=== PATIENT | female | born 1945 | race Caucasian/White ===

== ENCOUNTER 2021-06-26 10:25 | Inpatient (IN) | payer MEDICARE ==
[2021-06-26] MEDS ORDERED: KETOROLAC 15 MG/ML 1 ML VIAL IVP STA (12:45)
[2021-06-26] MEDS ORDERED: SODIUM CHLORIDE 0.9% 500 ML 500 ML IV ONE (12:45)
[2021-06-26] MEDS ORDERED: ONDANSETRON 4 MG/2 ML VIAL IVP STA (12:46)
[2021-06-26 13:23] LABS: Anisocytosis Slight; Basophils % (A) 0 %; Eosinophils # (A) 0.1 k/uL (0-0.7); Eosinophils % (A) 1 %; HGB 14.9 gm/dL (11.4-16.0); Lymphocytes # (A) 1.1 k/uL (1.0-4.8); Lymphocytes % (A) 10 %; MCH 25.7 pg (25.0-35.0); MCV 77.8 fL (80.0-100.0); Mean Platelet Volume 8.6; Microcytosis Slight; Monocytes # (A) 0.8 k/uL (0-1.0); Monocytes % (A) 7 %; Neutrophils % (A) 81 %; Platelet Count 283 k/uL (150-450); RBC 5.79 m/uL (3.80-5.40); RDW 18.6 % (11.5-15.5); WBC 11.2 k/uL (3.8-10.6)
--- NOTE | 2021-06-26 13:24 | US ---
EXAMINATION TYPE: US gallbladder DATE OF EXAM: 06/26/2021 COMPARISON: NONE CLINICAL HISTORY: ruq abd pain. EXAM MEASUREMENTS: Liver Length: 17.8 cm Gallbladder Wall: 0.6 cm CBD: 0.6 cm Right Kidney: 9.8 x 4.5 x 5.0 cm Pancreas: Obscured by bowel gas, duct visualized measuring 0.2 cm Liver: wnl Gallbladder: Multiple stones visualized, wall appears thickened Evidence for sonographic Burris's sign: yes CBD: wnl as visualized, distal portion is obscured by bowel gas Right Kidney: No hydronephrosis or masses seen IMPRESSION: 1. Cholelithiasis correlate for acute cholecystitis. Distal CBD stone in the differential diagnosis.
[2021-06-26] MEDS ORDERED: MORPHINE SULFATE 4 MG/ML SYRINGE IVP STA (13:28)
[2021-06-26 13:30] LABS: ALT 20 U/L (4-34); AST 40 U/L (14-36); African American GFR (CKD) >90 (>60 ml/min/1.73 sqM); Albumin 4.6 g/dL (3.5-5.0); Alkaline Phosphatase 111 U/L (38-126); Amylase 80 U/L (30-110); Anion Gap 10 mmol/L; Blood Urea Nitrogen 11 mg/dL (7-17); Calcium 10.3 mg/dL (8.4-10.2); Carbon Dioxide 26 mmol/L (22-30); Chloride 96 mmol/L (98-107); Glucose 114 mg/dL (74-99); Lipase 99 U/L (23-300); Non-African American GFR(CKD) 87 (>60 ml/min/1.73 sqM); Potassium 3.7 mmol/L (3.5-5.1); Sodium 132 mmol/L (137-145); Total Bilirubin 0.6 mg/dL (0.2-1.3); Total Protein 7.7 g/dL (6.3-8.2)
[2021-06-26 13:35] LABS: Appearance,Urine Cloudy (Clear); Bilirubin,Urine Negative (Negative); Blood,Urine Negative (Negative); Color,Urine Yellow; Glucose,Urine (UA) Negative (Negative); Hyaline Casts,Urine 19 /lpf (0-2); Ketones,Urine 1+ (Negative); Leukocyte Esterase,Urine Moderate (Negative); Mucus,Urine Many /hpf; Nitrite,Urine Negative (Negative); Protein,Urine 1+ (Negative); RBC,Urine 9 /hpf (0-5); Specific Gravity,Urine 1.026 (1.001-1.035); Squamous Epithelial Cell,Urine 1 /hpf (0-4); WBC,Urine 6 /hpf (0-5)
[2021-06-26 13:37] LABS: Partial Thromboplastin Time 23.8 sec (22.0-30.0); Prothrombin Time 10.4 sec (9.0-12.0)
--- NOTE | 2021-06-26 14:29 | CT ---
EXAMINATION TYPE: CT abdomen pelvis w con DATE OF EXAM: 06/26/2021 HISTORY: Rt sided pain CT DLP: 1314.7mGycm Automated Exposure Control for Dose Reduction was Utilized. CONTRAST: CT scan of the abdomen and pelvis is performed without oral but with IV Contrast, patient injected wi th 100 mL of Isovue 300. COMPARISON: Gallbladder ultrasound earlier today FINDINGS: LUNG BASES: Slightly elevated left hemidiaphragm with mild bibasilar linear scarring and/or atelectas is. LIVER/GB: Prominent right hepatic lobe. Visualized liver heterogeneously hypodense suggesting diffuse fatty infiltration. Multiple punctate and subcentimeter hypodense lesions too small to further donnie cterize. Possible underlying von Meyenburg complex a benign etiology. Gallbladder is markedly abnormal with large internal partially calcified mass possible large partiall y calcified calculus versus hyperdense gallbladder containing some internal hyperdense and calcified gallstones. Wall is edematous and thickened. Common bile duct measures upper limits of normal coronal image 33 corresponding to ultrasound. No internal biliary dilatation noted. PANCREAS: No significant abnormality is seen. SPLEEN: No significant abnormality is seen. ADRENALS: Abnormal nonspecific 2.5 x 1.9 cm left adrenal mass axial image 19. Hounsfield units averag e 63 on initial contrast images. KIDNEYS: No significant abnormality is seen. BOWEL: Wandering cecum is present into the anterior midabdomen just right of midline coronal image 28 . No suspicious small or large bowel dilatation UTERUS/ADNEXA: Anteverted uterus. LYMPH NODES: No greater than 1cm abdominal or pelvic lymph nodes are appreciated. OSSEOUS STRUCTURES: Suspected accessory bilateral L1 ribs and transitional S1 vertebra. Multilevel mi ld to moderate anterior and lateral spurring. Vacuum disc phenomenon and mild to moderate disc space narrowing L3-L4 and L5 L5-S1 levels noted. Kwkm-hg-gkhdljon joint space loss in both hips. OTHER: Fairly large sized fat-containing umbilical hernia. IMPRESSION: 1. Suspect acute cholecystitis or less likely underlying gallbladder mass. Either way surgical explor ation is warranted. 2. Nonspecific 2.5 cm left adrenal mass, malignant etiology not excluded, nonemergent adrenal protoco l CT or MRI imaging follow-up is advised.
[2021-06-26] MEDS ORDERED: IBUPROFEN 400 MG TAB PO PRN (14:41)
[2021-06-26] MEDS ORDERED: NALOXONE 0.4 MG/ML 1 ML VIAL IV PRN (14:41)
[2021-06-26] MEDS ORDERED: ACETAMINOPHEN TAB 325 MG TAB PO PRN (14:41)
[2021-06-26] MEDS ORDERED: ONDANSETRON 4 MG/2 ML VIAL IVP PRN (14:41)
--- NOTE | 2021-06-26 14:41 | ED ---
Abdominal Pain HPI - General Chief Complaint: Abdominal Pain Stated Complaint: abd pain Time Seen by Provider: 06/26/21 12:16 Source: patient Mode of arrival: ambulatory Limitations: no limitations - History of Present Illness Initial Comments: The patient is a 76-year-old female who presents to the emergency department with reported abdominal pain. Patient states she's had epigastric abdominal pain since Thursday. Does have a long-standing history of "gallbladder issues" however the pain has never lasted this long. She has associated nausea and vo miting. Reports that the pain has been progressively getting worse. Pain radiates around to the right flank. Admits to increased frequency of urination. No hematuria. No changes in her bowel habits. Denies fevers or chills. No other alleviating, precipitating or modifying factors - Related Data Home Medications Medication Instructions Recorded Confirmed Aspirin EC [Ecotrin Low Dose] 81 mg PO DAILY 06/26/21 06/26/21 Atenolol [Tenormin] 50 mg PO HS 06/26/21 06/26/21 Multivitamins, Thera [Multivitamin 1 tab PO DAILY 06/26/21 06/26/21 (formulary)] amLODIPine [Norvasc] 5 mg PO DAILY 06/26/21 06/26/21 Previous Rx's Medication Instructions Recorded Acetaminophen Tab [Tylenol Tab] 500 mg PO Q6H PRN #30 tablet 06/28/21 Ibuprofen [Motrin] 600 mg PO Q8HR PRN #30 tab 06/28/21 Simethicone [Gas-X] 125 mg PO AC-TID PRN #20 capsule 06/28/21 Allergies Allergy/AdvReac Type Severity Reaction Status Date / Time No Known Allergies Allergy Verified 06/26/21 16:43 Review of Systems ROS Statement: Those systems with pertinent positive or pertinent negative responses have been documented in the HPI. ROS Other: All systems not noted in ROS Statement are negative. Past Medical History Past Medical History: Hypertension History of Any Multi-Drug Resistant Organisms: None Reported Past Surgical History: Appendectomy Additional Past Surgical History / Comment(s): right radical mastectomy, fx c6- c7, right ankle fx Past Psychological History: No Psychological Hx Reported Smoking Status: Never smoker Past Alcohol Use History: None Reported Past Drug Use History: None Reported General Exam Limitations: no limitations General appearance: alert, in no apparent distress Head exam: Present: atraumatic, normocephalic, normal inspection Eye exam: Present: normal appearance, PERRL, EOMI. Absent: scleral icterus, conjunctival injection, periorbital swelling ENT exam: Present: normal exam, mucous membranes moist Neck exam: Present: normal inspection. Absent: tenderness, meningismus, lymphadenopathy Respiratory exam: Present: normal lung sounds bilaterally. Absent: respiratory distress, wheezes, rales, rhonchi, stridor Cardiovascular Exam: Present: regular rate, normal rhythm, normal heart sounds. Absent: systolic murmur, diastolic murmur, rubs, gallop, clicks GI/Abdominal exam: Present: soft, tenderness (ruq), normal bowel sounds. Absent: distended, guarding, rebound, rigid Extremities exam: Present: normal inspection, full ROM, normal capillary refill. Absent: tenderness, pedal edema, joint swelling, calf tenderness Back exam: Present: normal inspection Neurological exam: Present: alert, oriented X3, CN II-XII intact Psychiatric exam: Present: normal affect, normal mood Skin exam: Present: warm, dry, intact, normal color. Absent: rash Course Vital Signs 06/26/21 06/26/21 10:36 15:26 Temperature 97.7 F Pulse Rate 67 84 Respiratory 18 18 Rate Blood Pressure 135/90 142/75 O2 Sat by Pulse 96 99 Oximetry Medical Decision Making - Medical Decision Making Upon arrival patient placed into room 33. A thorough history and physical exam is performed. IV is established. Patient was given 15 g of Toradol as she is requesting a non narcotic medication. Laboratory studies are conducted. Sodium is 132. Urinalysis demonstrates hyalin casts and a few red blood cells. No bacteria. The patient does have a color ultrasound performed which does demonstrate concern for acute cholecystitis. CT additionally shows these concerns. There is acute cholelithiasis. Patient is started on Zosyn. She does request Dr. Nunez as her surgeon. Dr. Nunez is functional director. I spoke with her who does agree to admit the patient. Patient is currently awaiting a bed on the floor - Lab Data Result diagrams: 06/28/21 06:25 06/28/21 18:41 Lab Results 06/26/21 06/26/21 06/26/21 Range/Units 12:35 12:35 12:35 WBC 11.2 H (3.8-10.6) k/uL RBC 5.79 H (3.80-5.40) m/uL Hgb 14.9 (11.4-16.0) gm/dL Hct 45.0 (34.0-46.0) % MCV 77.8 L (80.0-100.0) fL MCH 25.7 (25.0-35.0) pg MCHC 33.0 (31.0-37.0) g/dL RDW 18.6 H (11.5-15.5) % Plt Count 283 (150-450) k/uL MPV 8.6 Immature Gran % (Auto) % Absolute Nucleated RBC (0.00-0.00) X 10*3/uL Neutrophils % 81 % Lymphocytes % 10 % Monocytes % 7 % Eosinophils % 1 % Basophils % 0 % Immature Gran # (0.00-0.04) X 10*3/uL Neutrophils # 9.0 H (1.3-7.7) k/uL Lymphocytes # 1.1 (1.0-4.8) k/uL Monocytes # 0.8 (0-1.0) k/uL Eosinophils # 0.1 (0-0.7) k/uL Basophils # 0.0 (0-0.2) k/uL NRBC/100 WBC Diff (0.0-0.0) /100 WBCS Anisocytosis Slight Microcytosis Slight PT (9.0-12.0) sec INR (<1.2) APTT (22.0-30.0) sec Sodium 132 L (137-145) mmol/L Potassium 3.7 (3.5-5.1) mmol/L Chloride 96 L (98-107) mmol/L Carbon Dioxide 26 (22-30) mmol/L Anion Gap 10 mmol/L BUN 11 (7-17) mg/dL Creatinine 0.67 (0.52-1.04) mg/dL Est GFR (CKD-EPI)AfAm >90 (>60 ml/min/1.73 sqM) Est GFR (CKD-EPI)NonAf 87 (>60 ml/min/1.73 sqM) BUN/Creatinine Ratio (12.00-20.00) Ratio Glucose 114 H (74-99) mg/dL Plasma Lactic Acid Steve (0.7-2.0) mmol/L Calcium 10.3 H (8.4-10.2) mg/dL Total Bilirubin 0.6 (0.2-1.3) mg/dL AST 40 H (14-36) U/L ALT 20 (4-34) U/L Alkaline Phosphatase 111 (38-126) U/L Total Protein 7.7 (6.3-8.2) g/dL Albumin 4.6 (3.5-5.0) g/dL Globulin (1.6-3.3) g/dL Albumin/Globulin Ratio (1.60-3.17) g/dL Amylase 80 (30-110) U/L Lipase 99 (23-300) U/L Urine Color Yellow Urine Appearance Cloudy H (Clear) Urine pH 6.0 (5.0-8.0) Ur Specific [place] 1.026 (1.001-1.035) Urine Protein 1+ H (Negative) Urine Glucose (UA) Negative (Negative) Urine Ketones 1+ H (Negative) Urine Blood Negative (Negative) Urine Nitrite Negative (Negative) Urine Bilirubin Negative (Negative) Urine Urobilinogen 2.0 (<2.0) mg/dL Ur Leukocyte Esterase Moderate H (Negative) Urine RBC 9 H (0-5) /hpf Urine WBC 6 H (0-5) /hpf Ur Squamous Epith Cells 1 (0-4) /hpf Hyaline Casts 19 H (0-2) /lpf Urine Mucus Many H (None) /hpf 06/26/21 06/26/21 06/27/21 Range/Units 12:35 12:35 06:02 WBC 7.2 (3.8-10.6) k/uL RBC 4.81 (3.80-5.40) m/uL Hgb 12.5 (11.4-16.0) gm/dL Hct 38.3 (34.0-46.0) % MCV 79.5 L (80.0-100.0) fL MCH 26.1 (25.0-35.0) pg MCHC 32.8 (31.0-37.0) g/dL RDW 19.0 H (11.5-15.5) % Plt Count 228 (150-450) k/uL MPV 8.5 Immature Gran % (Auto) % Absolute Nucleated RBC (0.00-0.00) X 10*3/uL Neutrophils % 78 % Lymphocytes % 10 % Monocytes % 9 % Eosinophils % 1 % Basophils % 0 % Immature Gran # (0.00-0.04) X 10*3/uL Neutrophils # 5.6 (1.3-7.7) k/uL Lymphocytes # 0.7 L (1.0-4.8) k/uL Monocytes # 0.7 (0-1.0) k/uL Eosinophils # 0.1 (0-0.7) k/uL Basophils # 0.0 (0-0.2) k/uL NRBC/100 WBC Diff (0.0-0.0) /100 WBCS Anisocytosis Slight Microcytosis Slight PT 10.4 (9.0-12.0) sec INR 1.0 (<1.2) APTT 23.8 (22.0-30.0) sec Sodium (137-145) mmol/L Potassium (3.5-5.1) mmol/L Chloride (98-107) mmol/L Carbon Dioxide (22-30) mmol/L Anion Gap mmol/L BUN (7-17) mg/dL Creatinine (0.52-1.04) mg/dL Est GFR (CKD-EPI)AfAm (>60 ml/min/1.73 sqM) Est GFR (CKD-EPI)NonAf (>60 ml/min/1.73 sqM) BUN/Creatinine Ratio (12.00-20.00) Ratio Glucose (74-99) mg/dL Plasma Lactic Acid Steve 1.2 (0.7-2.0) mmol/L Calcium (8.4-10.2) mg/dL Total Bilirubin (0.2-1.3) mg/dL AST (14-36) U/L ALT (4-34) U/L Alkaline Phosphatase (38-126) U/L Total Protein (6.3-8.2) g/dL Albumin (3.5-5.0) g/dL Globulin (1.6-3.3) g/dL Albumin/Globulin Ratio (1.60-3.17) g/dL Amylase (30-110) U/L Lipase (23-300) U/L Urine Color Urine Appearance (Clear) Urine pH (5.0-8.0) Ur Specific [place] (1.001-1.035) Urine Protein (Negative) Urine Glucose (UA) (Negative) Urine Ketones (Negative) Urine Blood (Negative) Urine Nitrite (Negative) Urine Bilirubin (Negative) Urine Urobilinogen (<2.0) mg/dL Ur Leukocyte Esterase (Negative) Urine RBC (0-5) /hpf Urine WBC (0-5) /hpf Ur Squamous Epith Cells (0-4) /hpf Hyaline Casts (0-2) /lpf Urine Mucus (None) /hpf 06/27/21 06/28/21 06/28/21 Range/Units 06:02 06:25 06:25 WBC 7.22 (3.8-10.6) k/uL RBC 4.25 (3.80-5.40) m/uL Hgb 10.6 L (11.4-16.0) gm/dL Hct 34.1 L (34.0-46.0) % MCV 80.2 (80.0-100.0) fL MCH 24.9 L (25.0-35.0) pg MCHC 31.1 L (31.0-37.0) g/dL RDW 19.7 H (11.5-15.5) % Plt Count 155 (150-450) k/uL MPV 11.6 Immature Gran % (Auto) 0.3 % Absolute Nucleated RBC 0 (0.00-0.00) X 10*3/uL Neutrophils % 77.4 % Lymphocytes % 10.1 % Monocytes % 11.1 % Eosinophils % 0.8 % Basophils % 0.3 % Immature Gran # 0.02 (0.00-0.04) X 10*3/uL Neutrophils # 5.59 (1.3-7.7) k/uL Lymphocytes # 0.73 L (1.0-4.8) k/uL Monocytes # 0.80 (0-1.0) k/uL Eosinophils # 0.06 (0-0.7) k/uL Basophils # 0.02 (0-0.2) k/uL NRBC/100 WBC Diff 0 (0.0-0.0) /100 WBCS Anisocytosis Microcytosis PT (9.0-12.0) sec INR (<1.2) APTT (22.0-30.0) sec Sodium 134 L 136 (137-145) mmol/L Potassium 4.0 3.4 L (3.5-5.1) mmol/L Chloride 103 103 (98-107) mmol/L Carbon Dioxide 27 27.4 (22-30) mmol/L Anion Gap 4 5.60 mmol/L BUN 11 15.0 (7-17) mg/dL Creatinine 0.59 0.8 (0.52-1.04) mg/dL Est GFR (CKD-EPI)AfAm >90 84.2 (>60 ml/min/1.73 sqM) Est GFR (CKD-EPI)NonAf >90 72.6 (>60 ml/min/1.73 sqM) BUN/Creatinine Ratio 18.75 (12.00-20.00) Ratio Glucose 102 H 129 H (74-99) mg/dL Plasma Lactic Acid Steve (0.7-2.0) mmol/L Calcium 8.6 7.6 L (8.4-10.2) mg/dL Total Bilirubin 0.7 (0.2-1.3) mg/dL AST 53 H (14-36) U/L ALT 45 H (4-34) U/L Alkaline Phosphatase 91 (38-126) U/L Total Protein 4.9 L (6.3-8.2) g/dL Albumin 3.20 L (3.5-5.0) g/dL Globulin 1.7 (1.6-3.3) g/dL Albumin/Globulin Ratio 1.88 (1.60-3.17) g/dL Amylase (30-110) U/L Lipase (23-300) U/L Urine Color Urine Appearance (Clear) Urine pH (5.0-8.0) Ur Specific [place] (1.001-1.035) Urine Protein (Negative) Urine Glucose (UA) (Negative) Urine Ketones (Negative) Urine Blood (Negative) Urine Nitrite (Negative) Urine Bilirubin (Negative) Urine Urobilinogen (<2.0) mg/dL Ur Leukocyte Esterase (Negative) Urine RBC (0-5) /hpf Urine WBC (0-5) /hpf Ur Squamous Epith Cells (0-4) /hpf Hyaline Casts (0-2) /lpf Urine Mucus (None) /hpf - EKG Data EKG Comments: EKG demonstrates a sinus bradycardia with a ventricular rate of 58. FL interval 146. QRS 88. QTC of 428. No acute ST segment elevations or depressions Disposition Clinical Impression: Cholecystitis, acute with cholelithiasis Disposition: ADMITTED IP TO THIS HOSP Condition: Stable Is patient prescribed a controlled substance at d/c from ED?: No Decision to Admit Reason: Admit from EC Decision Date: 06/26/21 Decision Time: 14:41
[2021-06-26] MEDS: SODIUM CHLORIDE 0.9% 1,000 ML IV SCH (15:24)
[2021-06-26] MEDS: PIPERACILLIN-TAZOBACTAM 3.375 GM in SODIUM CHLORIDE 0.9% 100 ML IVPB SCH ×2 (16:13→23:48)
[2021-06-26] MEDS: MORPHINE SULFATE 4 MG/ML SYRINGE IV PRN (22:33)
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
[2021-06-26] MEDS: atenoloL 50 MG TAB PO SCH (23:48)
[2021-06-27] MEDS: SODIUM CHLORIDE 0.9% 1,000 ML IV SCH ×2 (04:07→08:05)
[2021-06-27 06:41] LABS: Anisocytosis Slight; Basophils % (A) 0 %; Eosinophils # (A) 0.1 k/uL (0-0.7); Eosinophils % (A) 1 %; HCT 38.3 % (34.0-46.0); HGB 12.5 gm/dL (11.4-16.0); Lymphocytes # (A) 0.7 k/uL (1.0-4.8); Lymphocytes % (A) 10 %; MCH 26.1 pg (25.0-35.0); MCHC 32.8 g/dL (31.0-37.0); MCV 79.5 fL (80.0-100.0); Mean Platelet Volume 8.5; Microcytosis Slight; Monocytes # (A) 0.7 k/uL (0-1.0); Monocytes % (A) 9 %; Neutrophils # (A) 5.6 k/uL (1.3-7.7); Neutrophils % (A) 78 %; Platelet Count 228 k/uL (150-450); RBC 4.81 m/uL (3.80-5.40); WBC 7.2 k/uL (3.8-10.6)
[2021-06-27 06:53] LABS: African American GFR (CKD) >90 (>60 ml/min/1.73 sqM); Anion Gap 4 mmol/L; Blood Urea Nitrogen 11 mg/dL (7-17); Calcium 8.6 mg/dL (8.4-10.2); Carbon Dioxide 27 mmol/L (22-30); Chloride 103 mmol/L (98-107); Glucose 102 mg/dL (74-99); Non-African American GFR(CKD) >90 (>60 ml/min/1.73 sqM); Sodium 134 mmol/L (137-145)
[2021-06-27] MEDS: HEPARIN SODIUM,PORCINE/PF 5,000 UNIT/0.5 ML SYRINGE SQ SCH ×2 (08:04→21:33)
[2021-06-27] MEDS: amLODIPine 5 MG TAB PO SCH (08:04)
[2021-06-27] MEDS: PIPERACILLIN-TAZOBACTAM 3.375 GM in SODIUM CHLORIDE 0.9% 100 ML IVPB SCH ×2 (08:05→16:45)
[2021-06-27] MEDS: MORPHINE SULFATE 4 MG/ML SYRINGE IV PRN (12:04)
[2021-06-27] MEDS ORDERED: ACETAMINOPHEN TAB 325 MG TAB PO PRN (20:19)
[2021-06-27] MEDS: atenoloL 50 MG TAB PO SCH (21:33)
--- NOTE | 2021-06-27 21:44 | P.PN ---
Subjective Progress Note Date: 06/27/21 CHIEF COMPLAINT: Acute cholecystitis HISTORY OF PRESENT ILLNESS: The patient is a 76 year old female admitted with acute cholecystitis. She reports abdominal pain with eating banana. REVIEW OF ORGAN SYSTEMS: No fevers or chills. No chest pain. No shortness of breath. PHYSICAL EXAM: VITALS: Reviewed CONSTITUTIONAL: Well developed and in no acute distress. EYES: Conjuctivae without sclera icterus. Extraocular movements grossly intact. HEAD, EARS, NOSE, THROAT: Moist buccal mucosa. Head is atraumatic, normocephalic. Hears conversational speech. No nasal drainage. RESPIRATORY: Non-labored respirations and equal bilateral excursions. No gross wheezes. CARDIOVASCULAR: Regular rate and rhythm. Extremities without moderate edema. Palpable 2+ radial pulses. ABDOMEN: Tender right upper quadrant. MUSCULOSKELETAL: No clubbing cyanosis or edema. SKIN: Warm and well perfused with good skin turgor. NEUROLOGIC: Cranial nerves II through XII grossly intact. No focal or lateralizing signs. PSYCH: Appropriate affect. Alert and oriented to person, place and time. Displays appropriate insight. CLINCAL LABS: Reviewed. WBC elevated over 11,000 now normal at 7.2 ASSESSMENT: 1. Acute cholecystitis with gallstones PLAN: 1. Continue IV antibiotics for acute cholecystitis 2. Robotic cholecystectomy described. Objective - Vital Signs Vital signs: Vital Signs Temp 98.3 F 06/27/21 14:53 Pulse 60 06/27/21 14:53 Resp 18 06/27/21 14:53 BP 134/69 06/27/21 14:53 Pulse Ox 98 06/27/21 14:53 Intake & Output 06/27/21 06/27/21 06/28/21 06:59 18:59 06:59 Intake Total 717 Balance 717 Intake: Oral 717 Other: Voiding Method Toilet # Voids 1 2 2 - Labs CBC & Chem 7: 06/27/21 06:02 06/27/21 06:02 Labs: Abnormal Lab Results - Last 24 Hours (Table) 06/27/21 06/27/21 Range/Units 06:02 06:02 MCV 79.5 L (80.0-100.0) fL RDW 19.0 H (11.5-15.5) % Lymphocytes # 0.7 L (1.0-4.8) k/uL Sodium 134 L (137-145) mmol/L Glucose 102 H (74-99) mg/dL Assessment and Plan (1) Hypertensive heart disease Current Visit: Yes Status: Acute Code(s): I11.9 - HYPERTENSIVE HEART DISEASE WITHOUT HEART FAILURE SNOMED Code(s): 85830672 (2) Bradycardia Current Visit: Yes Status: Acute Code(s): R00.1 - BRADYCARDIA, UNSPECIFIED SNOMED Code(s): 52588616 (3) Cholecystitis, acute with cholelithiasis Current Visit: Yes Status: Acute Code(s): K80.00 - CALCULUS OF GALLBLADDER W ACUTE CHOLECYST W/O OBSTRUCTION SNOMED Code(s): 80789550 (4) Hypercalcemia Current Visit: Yes Status: Acute Code(s): E83.52 - HYPERCALCEMIA SNOMED Code(s): 51425134 (5) Leukocytosis Current Visit: Yes Status: Acute Code(s): D72.829 - ELEVATED WHITE BLOOD CELL COUNT, UNSPECIFIED SNOMED Code(s): 010517635
[2021-06-28] MEDS: PIPERACILLIN-TAZOBACTAM 3.375 GM in SODIUM CHLORIDE 0.9% 100 ML IVPB SCH ×3 (00:08→18:57)
[2021-06-28] MEDS ORDERED: INDOCYANINE GREEN 25 MG VIAL IV STA (07:40)
--- NOTE | 2021-06-28 07:42 | P.HPADDEND ---
H&P Addendum H&P Addendum Date: 06/28/21 Patient with acute cholecystitis with robotic cholecystectomy described. Additional hospitalization for any presence of gallbladder necrosis or gangrene.
[2021-06-28] MEDS: HEPARIN SODIUM,PORCINE/PF 5,000 UNIT/0.5 ML SYRINGE SQ SCH ×2 (08:43→20:25)
[2021-06-28] MEDS: amLODIPine 5 MG TAB PO SCH (08:43)
[2021-06-28] MEDS: SODIUM CHLORIDE 0.9% 1,000 ML IV SCH ×2 (08:46→18:58)
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
[2021-06-28 10:36] LABS: Basophils # (A) 0.02 X 10*3/uL (0.00-0.10); Basophils % (A) 0.3 %; Eosinophils # (A) 0.06 X 10*3/uL (0.04-0.35); Eosinophils % (A) 0.8 %; HCT 34.1 % (37.2-46.3); HGB 10.6 g/dL (12.0-15.0); Lymphocytes # (A) 0.73 X 10*3/uL (0.90-5.00); Lymphocytes % (A) 10.1 %; MCH 24.9 pg (27.0-32.0); MCHC 31.1 g/dL (32.0-37.0); MCV 80.2 fL (80.0-97.0); Mean Platelet Volume 11.6 fL (9.5-12.2); Monocytes % (A) 11.1 %; Neutrophils # (A) 5.59 X 10*3/uL (1.80-7.70); Neutrophils % (A) 77.4 %; Platelet Count 155 X 10*3/uL (140-440); RBC 4.25 X 10*6/uL (4.10-5.20); RDW 19.7 % (11.5-14.5); WBC 7.22 X 10*3/uL (4.50-10.00)
[2021-06-28 11:06] LABS: African American GFR (CKD) 84.2 (60.0-200.0); Albumin 3.2 g/dL (3.80-4.90); Albumin/Globulin Ratio 1.88 (1.60-3.17); Anion Gap 5.6 mmol/L (4.00-12.00); BUN/Creat Ratio 18.75 Ratio (12.00-20.00); Calcium 7.6 mg/dL (8.7-10.3); Carbon Dioxide 27.4 mmol/L (21.6-31.8); Globulin 1.7 g/dL (1.6-3.3); Non-African American GFR(CKD) 72.6 (60.0-200.0); Potassium 3.4 mmol/L (3.5-5.5); Total Bilirubin 0.7 mg/dL (0.3-1.2); Total Protein 4.9 g/dL (6.2-8.2)
[2021-06-28] MEDS ORDERED: IV FLUID CONTINUATION 1,000 ML IV ONE ×2 (13:16→17:32)
[2021-06-28] MEDS ORDERED: LIDOCAINE 1% INJ 10MG/ML (20 ML MDV) ONE (14:18)
[2021-06-28] MEDS ORDERED: NEOSTIGMINE 1 MG/ML 10 ML VIAL ONE (14:18)
[2021-06-28] MEDS ORDERED: INDOCYANINE GREEN 25 MG VIAL IV ONE (14:18)
[2021-06-28] MEDS ORDERED: PHENYLEPHRINE-0.9% NACL SYG 1,000 MCG/10 ML SYRINGE ONE (14:18)
[2021-06-28] MEDS ORDERED: GLYCOPYRROLATE 0.2 MG/ML 2 ML VIAL ONE (14:18)
[2021-06-28] MEDS ORDERED: MIDAZOLAM 2 MG/2 ML VIAL ONE (14:18)
[2021-06-28] MEDS ORDERED: PROPOFOL 10 MG/ML 20 ML VIAL IV ONE (14:18)
[2021-06-28] MEDS ORDERED: ROCURONIUM 10 MG/ML (5 ML VIAL) IV ONE (14:18)
[2021-06-28] MEDS ORDERED: ePHEDrine SULFATE/0.9% NACL/PF 50 MG/5 ML SYRINGE IV ONE (14:18)
[2021-06-28] MEDS ORDERED: SUCCINYLCHOLINE CHLORIDE 100 MG/5 ML SYR IV ONE (14:18)
[2021-06-28] MEDS ORDERED: POTASSIUM CHLORIDE ER 20 MEQ TAB.ER PO STA (14:27)
[2021-06-28] MEDS ORDERED: LIDOCAINE 1%-EPI 1:100,000 20 ML VIAL SQ ONE (14:49)
[2021-06-28] MEDS ORDERED: ONDANSETRON 4 MG/2 ML VIAL IVP PRN (17:22)
[2021-06-28] MEDS ORDERED: HYDROmorphone 0.5 MG/0.5 ML SYRINGE IVP ONE (17:28)
--- NOTE | 2021-06-28 17:43 | P.OP ---
Date of Procedure: 06/28/21 Description of Procedure: SURGEON: BHARAT LIGHT MD PREOPERATIVE DIAGNOSES: 1. Acute cholecystitis due to cystic duct obstruction 2. Symptomatic gallstones 3. History of breast cancer status post right mastectomy 4. Hypertensive heart disease 5. Bradycardia 6. Past tobacco abuse disorder 7. Elevated liver enzymes 8. Acute blood loss anemia POSTOPERATIVE DIAGNOSES: 1. Acute hemorrhagic cholecystitis due to cystic duct obstruction 2. Symptomatic gallstones 3. History of breast cancer status post right mastectomy 4. Hypertensive heart disease 5. Bradycardia 6. Past tobacco abuse disorder 7. Right upper quadrant peritoneal adhesions 8. Elevated liver enzymes 9. Acute blood loss anemia OPERATION: 1. Robotic-assisted da Gus Xi laparoscopic extensive lysis of adhesions over 1 hour 2. Robotic-assisted da Gus Xi laparoscopic cholecystectomy, multiport with FIREFLY ESTIMATED BLOOD LOSS: 20 mL. SPECIMENS REMOVED: Gallbladder. COMPLICATIONS: None. OPERATIVE FINDINGS: 1. Acute hemorrhagic cholecystitis with localized rupture along the fundus 2. Umbilical hernia 3. Moderate right upper quadrant peritoneal adhesions requiring extensive lysis of adhesions over 1 hour 4. Common bile duct including the cystic duct moderately dilated for possible choledocholithiasis 5. Due to the large size of cystic duct, stapled resection performed using 45 mm blue staple robotic load INDICATIONS: The patient is a 76 year-old female who presents with almost 1 week history of severe right upper quadrant abdominal pain. Diagnostic studies confirmed acute cholecystitis. Liver enzymes were elevated. Preoperatively, patient had acute drop of her hemoglobin from 14.9-10.6 consistent with acute blood loss anemia prior to surgery. Surgical intervention with cholecystectomy was described. Robotic assisted laparoscopic approach was described. Benefits and risks of the procedure including but not limited to bleeding, infection, injury to the biliary tree was reviewed. Informed consent was obtained. DESCRIPTION OF PROCEDURE: Patient was brought to the operating room, placed in supine position. After general induction, the abdomen had been prepped and draped in standard sterile fashion. The robotic da Gus XI system was primed. After a timeout protocol was performed, the patient had been prepped and draped in standard sterile fashion. The patient was injected with indocyanine green. A 5 mm 0 degrees laparoscopic trocar entry was performed along the left upper quadrant. The abdomen insufflated to 15 mmHg pressure which was tolerated well. Diagnostic laparoscopy demonstrated no injury to bowel viscera or mesentery. The liver surface was unremarkable. The gallbladder was completely embedded in the omentum of the right upper quadrant with adhesions to the abdominal wall identified. An umbilical hernia was also confirmed. Next, two 8 mm robotic ports were placed along the right upper abdomen. The camera 8-mm port was maintained along the epigastrium. Another 8 mm port was placed along the left upper abdominal wall after exchanging the 5 mm port. Please note that the ports were placed at least 10 to 15 cm away from the target anatomy of the gallbladder. The robot was docked along the left lateral abdomen. The patient was repositioned in reverse Trendelenburg position at 21 with the right side up 7 . Using a grasper for arm 3, a grasper for arm 4, including hook cautery for arm 1, the robotic system was docked and primed as described. Instruments were interchanged by the senior court office assistant including hook cautery, Bovie cautery and clip appliers. Additional instruments including robotic staple load, vessel sealer, suction head nurse required later in the case. I had sat at the console. Dense omental adhesions along the gallbladder and abdominal wall was identified and initially dissected bluntly using graspers. Focal perforation along the inferior anterior aspect of the fundus was identified with localized contamination. The fluid was hemorrhagic consistent with hemorrhagic cholecystitis. The infundibulum and cystic structures were edematous and obscured requiring dome down technique. Due to moderate distention of the infundibulum, dome down technique was performed removing the gallbladder from the hepatic fossa starting from the fundus towards the infundibulum. Extensive lysis of adhesions over 1 hour was performed using vessel sealer including hook cautery to dissect the gallbladder from the surrounding tissues. Using a sponge, the liver was reflected towards the diaphragm and starting at the gallbladder fundus, hook cautery was used to find the avascular plane between the liver and the gallbladder. As the gallbladder was dissected from the hepatic fossa, hemostasis was checked using vessel sealer along the posterior gallbladder. Next, indocyanine green was used to confirm the common bile duct as well as cystic duct. The common bile duct including cystic duct were moderately dilated. Additionally, the entire gallbladder was without contrast consistent with acute cholecystitis. FIREFLY was used to identify the cystic structures. A critical view of safety was obtained. As the cystic duct and common bile duct were identified and the cystic duct was moderately dilated, a stapled resection was performed. The left upper quadrant trocar was exchanged for a 12 mm trocar. A 45 mm blue robotic staple load was entry into the abdomen. The entire gallbladder was detached with the exception of the cystic duct. A stapler was fired across the infundibulum and cystic duct with complete hemostasis and without leakage of bile. Hemostasis was checked and found to be adequate. The robot was undocked. I re-scrubbed into the case. A 10 mm Endo Catch bag was used to remove the gallbladder in total via the left upper quadrant incision after widening the incision. The specimen was removed from the abdominal cavity. Nigel Cortez and 0 Vicryl was used to close the fascial defect of the left upper quadrant. All pneumoperitoneum instruments were evacuated from the abdominal cavity. The incisions were cleansed using dilute hydrogen peroxide. The incisions were reapproximated using 4-0 Monocryl in an interrupted subcuticular fashion. Please note along the trocar sites, local anesthetic was placed as a field block prior to insertion of all instruments. Liquid glue was applied to the skin. At the left upper quadrant trocar site, Optifoam dressing was placed without glue. At the end of the procedure needle, sponge, and instrument count had been verified correct by the surgical scrub technician. The patient was transferred to postanesthesia care unit in stable condition.
[2021-06-28 19:23] LABS: ALT 59 U/L (4-34); AST 92 U/L (14-36); African American GFR (CKD) >90 (>60 ml/min/1.73 sqM); Albumin 3.1 g/dL (3.5-5.0); Albumin/Globulin Ratio 1.2; Alkaline Phosphatase 112 U/L (38-126); Anion Gap 7 mmol/L; Blood Urea Nitrogen 14 mg/dL (7-17); Carbon Dioxide 25 mmol/L (22-30); Chloride 103 mmol/L (98-107); Globulin 2.5 g/dL; Glucose 131 mg/dL (74-99); Non-African American GFR(CKD) 88 (>60 ml/min/1.73 sqM); Potassium 2.9 mmol/L (3.5-5.1); Sodium 135 mmol/L (137-145); Total Bilirubin 0.9 mg/dL (0.2-1.3); Total Protein 5.6 g/dL (6.3-8.2)
[2021-06-28] MEDS: atenoloL 50 MG TAB PO SCH (20:25)
[2021-06-28] MEDS: KETOROLAC 15 MG/ML 1 ML VIAL IVP PRN (20:25)
[2021-06-29] MEDS: PIPERACILLIN-TAZOBACTAM 3.375 GM in SODIUM CHLORIDE 0.9% 100 ML IVPB SCH ×4 (00:53→22:30)
[2021-06-29] MEDS: KETOROLAC 15 MG/ML 1 ML VIAL IVP PRN ×4 (02:10→22:38)
[2021-06-29] MEDS: amLODIPine 5 MG TAB PO SCH (07:28)
[2021-06-29] MEDS: HEPARIN SODIUM,PORCINE/PF 5,000 UNIT/0.5 ML SYRINGE SQ SCH ×2 (07:28→22:30)
--- NOTE | 2021-06-29 11:09 | P.PN ---
Subjective Progress Note Date: 06/29/21 Principal diagnosis: Acute cholecystitis Patient says she is still having abdominal discomfort since her cholecystectomy yesterday. Seems slightly better. She has not been voiding well. Today's labs are pending. She is afebrile. Objective - Vital Signs Vital signs: Vital Signs Temp 98.5 F 06/29/21 07:00 Pulse 76 06/29/21 07:00 Resp 18 06/29/21 07:00 BP 123/77 06/29/21 07:00 Pulse Ox 93 L 06/29/21 07:00 Intake & Output 06/28/21 06/29/21 06/29/21 18:59 06:59 18:59 Intake Total 1950 350 118 Output Total 20 Balance 1930 350 118 Intake: IV 1250 Intake, IV Titration 700 Amount Piperacillin-Tazobactam 3 100 .375 gm In Sodium Chloride 0.9% 100 ml @ 25 mls/hr IVPB Q8HR [facility] Rx# :[id number] Sodium Chloride 0.9% 1, 600 000 ml @ 75 mls/hr IV . [id number] [facility] Rx#:[id number] Oral 350 118 Output: Estimated Blood Loss 20 Other: Voiding Method Toilet # Voids 2 - Exam Abdomen: Soft, mild distention, mild tenderness, incisions clean and dry - Labs CBC & Chem 7: 06/28/21 06:25 06/28/21 18:41 Labs: Abnormal Lab Results - Last 24 Hours (Table) 06/28/21 Range/Units 18:41 Sodium 135 L (137-145) mmol/L Potassium 2.9 L (3.5-5.1) mmol/L Glucose 131 H (74-99) mg/dL Calcium 8.0 L (8.4-10.2) mg/dL AST 92 H (14-36) U/L ALT 59 H (4-34) U/L Total Protein 5.6 L (6.3-8.2) g/dL Albumin 3.1 L (3.5-5.0) g/dL Assessment and Plan (1) Cholecystitis, acute with cholelithiasis Narrative/Plan: Continue IV antibiotics. Diet as tolerated. Check morning labs. Bladder scan and possible catheter placement. Current Visit: Yes Status: Acute Code(s): K80.00 - CALCULUS OF GALLBLADDER W ACUTE CHOLECYST W/O OBSTRUCTION SNOMED Code(s): 57676705
[2021-06-29 12:01] LABS: HCT 35.5 % (37.2-46.3); HGB 10.8 g/dL (12.0-15.0); MCH 24.9 pg (27.0-32.0); MCHC 30.4 g/dL (32.0-37.0); Mean Platelet Volume 10.9 fL (9.5-12.2); Platelet Count 190 X 10*3/uL (140-440); RBC 4.33 X 10*6/uL (4.10-5.20); RDW 19.7 % (11.5-14.5); WBC 11.21 X 10*3/uL (4.50-10.00)
--- NOTE | 2021-06-29 14:59 | P.PN ---
<Ike Seay - Last Filed: 06/29/21 14:48> Subjective Progress Note Date: 06/29/21 History of Presenting Illness: 76-year-old female with a past medical history of hypertension and breast cancer resulting in right mastectomy and lymph node removal in 1989. He presented to the emergency department on 06/26/21 with a chief complaint of epigastric/abdominal pain 4 days accompanied by nausea and vomiting. Patient reports this pain is in her epigastric region radiating into right upper quadrant and wrapping around into right flank. Patient was seen and fully evaluated in the emergency department. Abdominal CT completed revealing suspected acute cholecystitis, unable to rule out underlying gallbladder mass recommending surgical exploration and nonspecific 2.5 cm left adrenal mass, malignant etiology is not excluded. Gallbladder ultrasound also done revealing Cholelithiasis correlate for acute cholecystitis with distal CBD stone as differential diagnoses. Patient was found to have mild leukocytosis with WBC count of 11.2 and low grade temp of 99.5F. Amylase and lipase normal findings and no significant abnormalities of liver function. Patient was admitted under Gen. surgery for acute cholecystitis and we have been consulted to follow for continued medical management. Patient scheduled for cholecystectomy this afternoon with Dr. Nunez. 06/28/21: Patient seen and fully evaluated at the bedside. She reports this pain is in her epigastric region radiating into right upper quadrant and wrapping around into right flank. She currently denies having nausea or any episodes of vomiting and denies any further complaints including headache, lightheadedness, dizziness, chest pain, palpitations, or shortness of breath. Vitals stable and patient afebrile. Hypokalemia with potassium of 3.4, order placed for repl acement. Leukocytosis has resolved with morning WBC count of 7.22. Patient remains on IV antibiotics Zosyn. Patient scheduled for cholecystectomy this afternoon with Dr. Nunez. 06/29/21: Patient was seen and fully evaluated this morning. Patient in recliner stating that her post surgical pain was not controlled throughout the night and she was unable to lay in the bed. Patient also reports that she has been unable to urinate since yesterday morning, orders place for stab bladder scan. Bladder scan resulting just under 300 mL of urine, patient was assisted up to restroom and at that time was able to urinate without further difficulties. Patient tolerating oral intake and has not had any episodes of postoperative nausea and vomiting. Awaiting morning labs to result. Patient denies having any headache, lightheadedness, dizziness, chest pain, palpitations, or shortness of breath. Review of systems: Pertinent positives and negatives as discussed in HPI, a complete review of systems was performed and all other systems are negative. Physical exam: Vital signs reviewed and stable. General: Nontoxic, no distress and appears stated age. Derm: Skin warm and dry, normal coloration for ethnicity. Head: Atraumatic, normocephalic and symmetric. Eyes: EOMs intact, no lid lag, and anicteric sclera Mouth: no lip lesions, mucus membranes moist Cardiovascular: regular rate and rhythm with normal S1S2, no murmur, positive posterior tibial pulses bilaterally, and cap refill < 2 seconds. Lungs: Respirations even, regular, and unlabored on room air. Lungs CTA bilaterally, no rhonchi, no rales, no wheezing, and no accessory muscle usage. Abdominal: soft, nontender to palpation, no guarding, no appreciable organomegaly Ext: ROM intact. No gross muscle atrophy, no edema, no contractures Neuro: Speech clear, face symmetrical and CN II-XII grossly intact with no noted focal neuro deficits Psych: Alert and oriented to person, place, time, and situation. Appropriate and pleasant affect. Assessment and Plan of Care: Acute cholecystitis status post laparoscopic cholecystectomy with extensive lysis of adhesions on 06/28/21 -Abdominal CT revealing suspected acute cholecystitis, unable to rule out underlying gallbladder mass recommending surgical exploration and nonspecific 2.5 cm left adrenal mass, malignant etiology is not excluded. -Gallbladder ultrasound revealing Cholelithiasis correlate for acute cholecystitis with distal CBD stone as differential diagnoses. -Being managed by primary admitting Gen. surgery team. -Symptomatic care and pain management. -IV antibiotics: Zosyn -Gentle hydration with IV fluids -Heart healthy diet -DVT prophylaxis with heparin Hypokalemia, replaced and awaiting repeat labs to result -We will continue to monitor with repeat a.m. labs and replace abnormal electrolyte values as needed. Hypertension -Monitor vital signs and continue daily medication regimen with amlodipine and atenolol. History of breast cancer with right mastectomy and lymph node removal -Blue band to be placed on patient's right arm to notify staff of restrictions including no lab draws, IVs, or blood pressures on right arm. Thank you for allowing us to participate in the care of this pleasant patient. Do not hesitate to contact us with questions. Someone can be reached from the [facility] hospitalist group all hours of the day at [phone] or via perfect serve. Objective - Vital Signs Vital signs: Vital Signs Temp 98.5 F 06/29/21 07:00 Pulse 76 06/29/21 07:00 Resp 18 06/29/21 07:00 BP 123/77 06/29/21 07:00 Pulse Ox 93 L 06/29/21 07:00 Intake & Output 06/28/21 06/29/21 06/29/21 18:59 06:59 18:59 Intake Total 1950 350 118 Output Total 20 Balance 1930 350 118 Intake: IV 1250 Intake, IV Titration 700 Amount Piperacillin-Tazobactam 3 100 .375 gm In Sodium Chloride 0.9% 100 ml @ 25 mls/hr IVPB Q8HR SANDI Rx# :[id number] Sodium Chloride 0.9% 1, 600 000 ml @ 75 mls/hr IV . [id number] SANDI Rx#:[id number] Oral 350 118 Output: Estimated Blood Loss 20 Other: Voiding Method Toilet # Voids 2 - Labs CBC & Chem 7: 06/29/21 07:29 06/28/21 18:41 Labs: Abnormal Lab Results - Last 24 Hours (Table) 06/28/21 06/28/21 Range/Units 06:25 18:41 Sodium 135 L (137-145) mmol/L Potassium 3.4 L 2.9 L (3.5-5.5) mmol/L Glucose 129 H 131 H (70-110) mg/dL Calcium 7.6 L 8.0 L (8.7-10.3) mg/dL AST 53 H 92 H (13-35) U/L ALT 45 H 59 H (8-44) U/L Total Protein 4.9 L 5.6 L (6.2-8.2) g/dL Albumin 3.20 L 3.1 L (3.80-4.90) g/dL <Ina Bright - Last Filed: 06/29/21 18:50> Subjective Patient seen and examined independently. Patient was also seen by Ike Geena, PLATE [employer]TER and case was discussed. I am in agreement with subjective, physical exam, assessment and plan as written above and amended below. Complains of feeling "miserable". Feels like her abdomen is distended, some low back pain. Has been urinating without difficulty. After much convincing agrees to take a shot of Toradol and she has received no pain medications since this morning. General: non toxic, mild distress secondary to pain, appears at stated age Derm: warm, dry Head: atraumatic, normocephalic, symmetric Eyes: EOMI, no lid lag, anicteric sclera Mouth: no lip lesion, mucus membranes moist Cardiovascular: S1S2 reg, no murmur, positive posterior tibial pulse bilateral, Lungs: CTA bilateral, no rhonchi, no rales , no accessory muscle use Abdominal: soft, tender to palpation diffusely, no guarding, no appreciable organomegaly Ext: no gross muscle atrophy, no edema, no contractures Neuro: CN II-XI grossly intact, no focal neuro deficits Psych: Alert, oriented, appropriate affect Objective - Vital Signs Vital signs: Vital Signs Temp 99.3 F 06/29/21 15:00 Pulse 54 L 06/29/21 15:00 Resp 16 06/29/21 15:00 BP 170/92 06/29/21 15:00 Pulse Ox 99 06/29/21 15:00 Intake & Output 06/28/21 06/29/21 06/29/21 18:59 06:59 18:59 Intake Total 1950 350 418 Output Total 20 Balance 1930 350 418 Intake: IV 1250 Intake, IV Titration 700 Amount Piperacillin-Tazobactam 3 100 .375 gm In Sodium Chloride 0.9% 100 ml @ 25 mls/hr IVPB Q8HR SANDI Rx# :[id number] Sodium Chloride 0.9% 1, 600 000 ml @ 75 mls/hr IV . [id number] SANDI Rx#:[id number] Oral 350 418 Output: Estimated Blood Loss 20 Other: Voiding Method Toilet # Voids 2 1 - Labs CBC & Chem 7: 06/29/21 07:29 06/29/21 15:33 Labs: Abnormal Lab Results - Last 24 Hours (Table) 06/28/21 06/29/21 Range/Units 18:41 07:29 WBC 11.21 H (4.50-10.00) X 10*3/uL Hgb 10.8 L (12.0-15.0) g/dL Hct 35.5 L (37.2-46.3) % MCH 24.9 L (27.0-32.0) pg MCHC 30.4 L (32.0-37.0) g/dL RDW 19.7 H (11.5-14.5) % Sodium 135 L (137-145) mmol/L Potassium 2.9 L (3.5-5.1) mmol/L Glucose 131 H (74-99) mg/dL Calcium 8.0 L (8.4-10.2) mg/dL AST 92 H (14-36) U/L ALT 59 H (4-34) U/L Total Protein 5.6 L (6.3-8.2) g/dL Albumin 3.1 L (3.5-5.0) g/dL
[2021-06-29] MEDS: SODIUM CHLORIDE 0.9% 1,000 ML IV SCH ×3 (16:43→22:52)
[2021-06-29] MEDS: atenoloL 50 MG TAB PO SCH (22:30)
[2021-06-29] MEDS ORDERED: SODIUM CHLORIDE 0.9% 500 ML 500 ML IV ONE (22:40)
[2021-06-29 22:41] LABS: African American GFR (CKD) 98.9 (60.0-200.0); Albumin 3.5 g/dL (3.80-4.90); Albumin/Globulin Ratio 1.59 (1.60-3.17); Anion Gap 10.7 mmol/L (4.00-12.00); BUN/Creat Ratio 22.86 Ratio (12.00-20.00); Calcium 8.3 mg/dL (8.7-10.3); Carbon Dioxide 23.3 mmol/L (21.6-31.8); Globulin 2.2 g/dL (1.6-3.3); Non-African American GFR(CKD) 85.4 (60.0-200.0); Total Bilirubin 0.9 mg/dL (0.3-1.2); Total Protein 5.7 g/dL (6.2-8.2)
[2021-06-30 02:00] VITALS: RESP 16
[2021-06-30 05:53] LABS: Anisocytosis Slight; Basophils % (A) 0 %; Eosinophils # (A) 0.1 k/uL (0-0.7); Eosinophils % (A) 1 %; HGB 10.4 gm/dL (11.4-16.0); Hypochromasia Marked; Lymphocytes # (A) 0.5 k/uL (1.0-4.8); Lymphocytes % (A) 7 %; MCH 26.5 pg (25.0-35.0); MCHC 31.6 g/dL (31.0-37.0); MCV 83.8 fL (80.0-100.0); Mean Platelet Volume 7.9; Microcytosis Slight; Monocytes # (A) 0.5 k/uL (0-1.0); Monocytes % (A) 6 %; Neutrophils # (A) 6.8 k/uL (1.3-7.7); Neutrophils % (A) 85 %; Platelet Count 159 k/uL (150-450); RBC 3.94 m/uL (3.80-5.40); RDW 18.1 % (11.5-15.5)
[2021-06-30] MEDS: PIPERACILLIN-TAZOBACTAM 3.375 GM in SODIUM CHLORIDE 0.9% 100 ML IVPB SCH (07:34)
[2021-06-30] MEDS: amLODIPine 5 MG TAB PO SCH (07:34)
[2021-06-30] MEDS: HEPARIN SODIUM,PORCINE/PF 5,000 UNIT/0.5 ML SYRINGE SQ SCH (07:34)
[2021-06-30] MEDS: SODIUM CHLORIDE 0.9% 1,000 ML IV SCH (07:35)
[2021-06-30 07:59] VITALS: BP 137/79; PULSE 70; TEMP 98.4
[2021-06-30 08:21] LABS: ALT 52 U/L (4-34); AST 65 U/L (14-36); African American GFR (CKD) >90 (>60 ml/min/1.73 sqM); Albumin 2.7 g/dL (3.5-5.0); Albumin/Globulin Ratio 1.1; Alkaline Phosphatase 138 U/L (38-126); Anion Gap 3 mmol/L; Blood Urea Nitrogen 15 mg/dL (7-17); Calcium 8.1 mg/dL (8.4-10.2); Carbon Dioxide 27 mmol/L (22-30); Chloride 105 mmol/L (98-107); Globulin 2.4 g/dL; Glucose 107 mg/dL (74-99); Non-African American GFR(CKD) >90 (>60 ml/min/1.73 sqM); Sodium 135 mmol/L (137-145); Total Bilirubin 0.7 mg/dL (0.2-1.3); Total Protein 5.1 g/dL (6.3-8.2)
--- NOTE | 2021-06-30 08:47 | P.PN ---
Subjective Progress Note Date: 06/30/21 Principal diagnosis: Acute cholecystitis Patient doing better today. Complaining of mild pain at the extraction site. Tolerating diet. Voiding better. Labs reviewed and appear improved. Objective - Vital Signs Vital signs: Vital Signs Temp 98.4 F 06/30/21 07:00 Pulse 70 06/30/21 07:00 Resp 16 06/30/21 07:00 BP 137/79 06/30/21 07:00 Pulse Ox 100 06/30/21 07:00 Intake & Output 06/29/21 06/30/21 06/30/21 18:59 06:59 18:59 Intake Total 418 500 Output Total 600 Balance 418 -100 Intake: Intake, IV Titration 500 Amount Sodium Chloride 0.9% 500 500 ml 500 ml @ 999 mls/hr IV .Q31M ONE Rx#:[id number] Oral 418 Output: Urine 600 Other: Voiding Method Toilet # Voids 1 1 - Exam Abdomen: Soft, nondistended, incisions clean and dry - Labs CBC & Chem 7: 06/30/21 04:49 06/30/21 06:25 Labs: Abnormal Lab Results - Last 24 Hours (Table) 06/29/21 06/29/21 06/30/21 Range/Units 07:29 07:29 04:49 WBC 11.21 H (4.50-10.00) X 10*3/uL Hgb 10.8 L 10.4 L (12.0-15.0) g/dL Hct 35.5 L 33.0 L (37.2-46.3) % MCH 24.9 L (27.0-32.0) pg MCHC 30.4 L (32.0-37.0) g/dL RDW 19.7 H 18.1 H (11.5-14.5) % Lymphocytes # 0.5 L (1.0-4.8) k/uL Sodium (137-145) mmol/L BUN/Creatinine Ratio 22.86 H (12.00-20.00) Ratio Glucose 155 H (70-110) mg/dL Calcium 8.3 L (8.7-10.3) mg/dL AST 95 H (13-35) U/L ALT 65 H (8-44) U/L Alkaline Phosphatase 127 H (41-126) U/L Total Protein 5.7 L (6.2-8.2) g/dL Albumin 3.50 L (3.80-4.90) g/dL Albumin/Globulin Ratio 1.59 L (1.60-3.17) g/dL 06/30/21 Range/Units 06:25 WBC (4.50-10.00) X 10*3/uL Hgb (12.0-15.0) g/dL Hct (37.2-46.3) % MCH (27.0-32.0) pg MCHC (32.0-37.0) g/dL RDW (11.5-14.5) % Lymphocytes # (1.0-4.8) k/uL Sodium 135 L (137-145) mmol/L BUN/Creatinine Ratio (12.00-20.00) Ratio Glucose 107 H (70-110) mg/dL Calcium 8.1 L (8.7-10.3) mg/dL AST 65 H (13-35) U/L ALT 52 H (8-44) U/L Alkaline Phosphatase 138 H (41-126) U/L Total Protein 5.1 L (6.2-8.2) g/dL Albumin 2.7 L (3.80-4.90) g/dL Albumin/Globulin Ratio (1.60-3.17) g/dL Assessment and Plan (1) Cholecystitis, acute with cholelithiasis Narrative/Plan: Doing well at this time. March discharge. Tylenol and Motrin for pain. Follow- up with Dr. Hanson is outpatient. Current Visit: Yes Status: Acute Code(s): K80.00 - CALCULUS OF GALLBLADDER W ACUTE CHOLECYST W/O OBSTRUCTION SNOMED Code(s): 58140862
--- NOTE | 2021-06-30 10:18 | P.PN ---
Subjective Progress Note Date: 06/30/21 Principal diagnosis: abdominal pain Patient is a 76-year-old female with a past medical history of hypertension and prior breast cancer who presented to the emergancy department with commplaints of abdominal pain. She underwent lap elli and had an uremarkable post op course. Patient seen and exmained at bedside. Still having some abdominal pain. Urinating without difficulty. No chest pain, no nausea, tolerating a deit. She is out of her amlodipine and atenolol and new RX were printed at her requests. General: non toxic, no distress, appears at stated age Derm: warm, dry Head: atraumatic, normocephalic, symmetric Eyes: EOMI, no lid lag, anicteric sclera Mouth: no lip lesion, mucus membranes moist Cardiovascular: S1S2 reg, no murmur, positive posterior tibial pulse bilateral, Lungs: CTA bilateral, no rhonchi, no rales , no accessory muscle use Abdominal: soft, +tender to palpation diffusely, no guarding, no appreciable organomegaly Ext: no gross muscle atrophy, no edema, no contractures Neuro: CN II-XI grossly intact, no focal neuro deficits Psych: Alert, oriented, appropriate affect Acute cholecystitis status post laparoscopic cholecystectomy with extensive lysis of adhesions on 06/28/21 -Being managed by primary admitting Gen. surgery team. -Symptomatic care and pain management. -IV antibiotics: Zosyn -Gentle hydration with IV fluids -Heart healthy diet -DVT prophylaxis with heparin Adrenal Mass - Needs outpatient non emergent dedicated adrenal CT -outpatient follow-up Hypertension -amlodipine and atenolol refilled History of breast cancer with right mastectomy and lymph node removal Hypokalemia, resolved Medically optimized for disscharge. Refills printed for norvasc and atenolol. Objective - Vital Signs Vital signs: Vital Signs Temp 98.4 F 06/30/21 07:00 Pulse 70 06/30/21 07:00 Resp 16 06/30/21 07:00 BP 137/79 06/30/21 07:00 Pulse Ox 100 06/30/21 07:00 Intake & Output 06/29/21 06/30/21 06/30/21 18:59 06:59 18:59 Intake Total 418 500 180 Output Total 600 Balance 418 -100 180 Intake: Intake, IV Titration 500 Amount Sodium Chloride 0.9% 500 500 ml 500 ml @ 999 mls/hr IV .Q31M ONE Rx#:[id number] Oral 418 180 Output: Urine 600 Other: Voiding Method Toilet # Voids 1 1 - Labs CBC & Chem 7: 06/30/21 04:49 06/30/21 06:25 Labs: Abnormal Lab Results - Last 24 Hours (Table) 06/29/21 06/29/21 06/30/21 Range/Units 07:29 07:29 04:49 WBC 11.21 H (4.50-10.00) X 10*3/uL Hgb 10.8 L 10.4 L (12.0-15.0) g/dL Hct 35.5 L 33.0 L (37.2-46.3) % MCH 24.9 L (27.0-32.0) pg MCHC 30.4 L (32.0-37.0) g/dL RDW 19.7 H 18.1 H (11.5-14.5) % Lymphocytes # 0.5 L (1.0-4.8) k/uL Sodium (137-145) mmol/L BUN/Creatinine Ratio 22.86 H (12.00-20.00) Ratio Glucose 155 H (70-110) mg/dL Calcium 8.3 L (8.7-10.3) mg/dL AST 95 H (13-35) U/L ALT 65 H (8-44) U/L Alkaline Phosphatase 127 H (41-126) U/L Total Protein 5.7 L (6.2-8.2) g/dL Albumin 3.50 L (3.80-4.90) g/dL Albumin/Globulin Ratio 1.59 L (1.60-3.17) g/dL 06/30/21 Range/Units 06:25 WBC (4.50-10.00) X 10*3/uL Hgb (12.0-15.0) g/dL Hct (37.2-46.3) % MCH (27.0-32.0) pg MCHC (32.0-37.0) g/dL RDW (11.5-14.5) % Lymphocytes # (1.0-4.8) k/uL Sodium 135 L (137-145) mmol/L BUN/Creatinine Ratio (12.00-20.00) Ratio Glucose 107 H (70-110) mg/dL Calcium 8.1 L (8.7-10.3) mg/dL AST 65 H (13-35) U/L ALT 52 H (8-44) U/L Alkaline Phosphatase 138 H (41-126) U/L Total Protein 5.1 L (6.2-8.2) g/dL Albumin 2.7 L (3.80-4.90) g/dL Albumin/Globulin Ratio (1.60-3.17) g/dL
--- NOTE | 2021-06-30 15:33 | P.DS ---
Providers Date of admission: 06/28/21 10:13 Expected date of discharge: 06/30/21 Attending physician: Karina Nunez Consults: 06/27/21 21:37 Consult Physician Routine Consulting Provider: Ina Bright Consult Reason/Comments: Medical management Do you want consulting provider notified?: Yes Primary care physician: Karina Nunez - Discharge Diagnosis(es) (1) Hypertensive heart disease Status: Acute (2) Bradycardia Status: Acute (3) Cholecystitis, acute with cholelithiasis Status: Acute (4) Hypercalcemia Status: Acute (5) Leukocytosis Status: Acute Hospital Course: POSTOPERATIVE DIAGNOSES: 1. Acute hemorrhagic cholecystitis due to cystic duct obstruction 2. Symptomatic gallstones 3. History of breast cancer status post right mastectomy 4. Hypertensive heart disease 5. Bradycardia 6. Past tobacco abuse disorder 7. Right upper quadrant peritoneal adhesions 8. Elevated liver enzymes 9. Acute blood loss anemia COURSE: The patient is a 76 year-old female who presents with almost 1 week history of severe right upper quadrant abdominal pain. She underwent robotic cholecystectomy with findings of hemorrhagic cholecystitis. Post-operatively she was observed with improvement of her abdominal pain. Prior to discharge, she was hemodynamically stable. Procedures: OPERATION: 1. Robotic-assisted da Gus Xi laparoscopic extensive lysis of adhesions over 1 hour 2. Robotic-assisted da Gus Xi laparoscopic cholecystectomy, multiport with FIREFLY ESTIMATED BLOOD LOSS: 20 mL. SPECIMENS REMOVED: Gallbladder. COMPLICATIONS: None. OPERATIVE FINDINGS: 1. Acute hemorrhagic cholecystitis with localized rupture along the fundus 2. Umbilical hernia 3. Moderate right upper quadrant peritoneal adhesions requiring extensive lysis of adhesions over 1 hour 4. Common bile duct including the cystic duct moderately dilated for possible choledocholithiasis 5. Due to the large size of cystic duct, stapled resection performed using 45 mm blue staple robotic load Patient Condition at Discharge: Stable Plan - Discharge Summary Discharge Rx Participant: Yes New Discharge Prescriptions: New Simethicone [Gas-X] 125 mg PO AC-TID PRN #20 capsule PRN Reason: Pain Acetaminophen Tab [Tylenol Tab] 500 mg PO Q6H PRN #30 tablet PRN Reason: Pain Ibuprofen [Motrin] 600 mg PO Q8HR PRN #30 tab PRN Reason: Pain Continue Multivitamins, Thera [Multivitamin (formulary)] 1 tab PO DAILY Aspirin EC [Ecotrin Low Dose] 81 mg PO DAILY amLODIPine [Norvasc] 5 mg PO DAILY #90 tab Changed Atenolol [Tenormin] 25 mg PO HS #90 tab Discharge Medication List Aspirin EC [Ecotrin Low Dose] 81 mg PO DAILY 06/26/21 [History] Multivitamins, Thera [Multivitamin (formulary)] 1 tab PO DAILY 06/26/21 [Histor y] Acetaminophen Tab [Tylenol Tab] 500 mg PO Q6H PRN #30 tablet 06/28/21 [Rx] Ibuprofen [Motrin] 600 mg PO Q8HR PRN #30 tab 06/28/21 [Rx] Simethicone [Gas-X] 125 mg PO AC-TID PRN #20 capsule 06/28/21 [Rx] Atenolol [Tenormin] 25 mg PO HS #90 tab 06/30/21 [Rx] amLODIPine [Norvasc] 5 mg PO DAILY #90 tab 06/30/21 [Rx] Follow up Appointment(s)/Referral(s): Karina Nunez MD [Primary Care Provider] - 07/11/21 (Please call Thursday through Thursday between 8 AM and 4 PM to confirm time) Wild Bean MD [REFERRING] - 3 Days Patient Instructions/Handouts: *[facility] - Laparoscopic Cholecystectomy Discharge Instructions, *[facility] - Managing Your Pain After Surgery Without Opioids, Low Fat Diet (DC), Advance Directives (DC), Abdominal Binder (DC) Activity/Diet/Wound Care/Special Instructions: Recommend low-fat diet for the next 2 days. No lifting over 10 pounds in 2 weeks until July 12. May shower. No bath tub soaks for two weeks until July 12 Diet as tolerated. Use Tylenol, simethicone and ibuprofen or Aleve scheduled for the next 24-48 hours for best pain relief. Use ice along incisions for today to prevent swelling. Obtain a good RX discount card. [email or web address] Will need follow-up CT abdomen and pelvis. Discharge Disposition: HOME SELF-CARE
== END 2021-06-30 10:51 | disposition home or self-care (01) | DRG 418 ==
LOC: EC 10:25 → 6NMEDSUR 14:41 → OBSVTOIN 06-28 10:13
PROVIDERS: ADMIT Surgery Plastic and Reconstructive Surgery; ATTEND Surgery Plastic and Reconstructive Surgery
PROC: 0DNU4ZZ Release Omentum, Percutaneous Endoscopic Approach (ICD-10-PCS; 2021-06-28)
PROC: 8E0W4CZ Robotic Assisted Procedure of Trunk Region, Percutaneous Endoscopic Approach (ICD-10-PCS; 2021-06-28)
PROC: 0FT44ZZ Resection of Gallbladder, Percutaneous Endoscopic Approach (ICD-10-PCS; principal; 2021-06-28 12:15)
DX: K80.01 Calculus of gallbladder with acute cholecystitis with obstruction (principal); D62 Acute posthemorrhagic anemia; Z79.82 Long term (current) use of aspirin; I11.9 Hypertensive heart disease without heart failure; R00.1 Bradycardia, unspecified; E83.52 Hypercalcemia; D72.829 Elevated white blood cell count, unspecified; E87.6 Hypokalemia; Z85.3 Personal history of malignant neoplasm of breast; Z90.11 Acquired absence of right breast and nipple; E27.9 Disorder of adrenal gland, unspecified; Z87.891 Personal history of nicotine dependence; R74.8 Abnormal levels of other serum enzymes; K42.9 Umbilical hernia without obstruction or gangrene; K66.0 Peritoneal adhesions (postprocedural) (postinfection); Z79.899 Other long term (current) drug therapy
CPT/HCPCS: 36415; 74177; 76705; 80048; 80053; 81001; 82150; 83605; 83690; 83735; 84132; 85025; 85027; 85610; 85730; 88304; 93005; 96374; 96375; 99285